=== PATIENT | female | born 1985 | race Caucasian/White ===

== ENCOUNTER 2016-07-12 09:00 | Inpatient (IN) | payer MEDICAID ==
[~2016-07-12] VITALS: Ht 157.5 cm; Wt 85.0 kg
[~2016-07-12 09:00] MED LIST: PREN1TAB49 PO
[2016-07-12 09:54] VITALS: Ht 157.5 cm; Wt 85.0 kg
[2016-07-12 09:57] VITALS: BP 108/59; PULSE 96; RESP 16
[2016-07-12] MEDS: LACTATED RINGER'S 1,000 ML IV SCH ×2 (10:48→18:59)
[2016-07-12] MEDS ORDERED: IBUPROFEN 600 MG TAB PO PRN (11:00)
[2016-07-12] MEDS ORDERED: CARBOPROST 250 MCG INJ IM PRN (11:00)
[2016-07-12] MEDS ORDERED: OXYTOCIN 30 UNITS/LR 500 ML IV SCH ×2 (11:00)
[2016-07-12] MEDS ORDERED: OXYTOCIN 30 UNITS/LR 500 ML IV PRN (11:00)
[2016-07-12] MEDS ORDERED: MISOPROSTOL 200 MCG TAB PR PRN (11:00)
[2016-07-12] MEDS ORDERED: BUTORPHANOL 2 MG INJ IV PRN (11:00)
[2016-07-12] MEDS ORDERED: METHYLERGONOVINE 0.2 MG INJ IM PRN (11:00)
[2016-07-12] MEDS ORDERED: LIDOCAINE 1% (MPF) 30 ML INJ INJ PRN (11:00)
[2016-07-12] MEDS ORDERED: ACETAMINOPHEN/CODEINE #3 TAB PO PRN (11:00)
[2016-07-12] MEDS ORDERED: DINOPROSTONE 10 MG VAG SUPP VAG ONE (11:30)
[2016-07-12 11:32] LABS: ADD SCAN DIFF NO
[2016-07-12 11:38] LABS: BASOPHILS % 0.1 % (0.0-2.0); EOSINOPHILS % 0.4 % (0.0-7.0); HEMATOCRIT 34.7 % (37.0-47.0); LYMPHOCYTES # 2.2 10^3/ul (0.8-2.9); LYMPHOCYTES % 31.4 % (15.0-51.0); MEAN CORPUSCULAR HEMOGLOBIN 30.3 pg (29.0-33.0); MEAN CORPUSCULAR HGB CONC 34.6 g/dl (32.0-37.0); MEAN CORPUSCULAR VOLUME 87.6 fl (82.0-101.0); MEAN PLATELET VOLUME 11.1 fl (7.4-10.4); MONOCYTE # 0.4 10^3/ul (0.3-0.9); MONOCYTES % 5.1 % (0.0-11.0); NEUTROPHIL # 4.4 10^3/ul (1.6-7.5); NEUTROPHILS % 62.7 % (39.0-77.0); PLATELET COUNT 265 10^3/UL (140-415); RED BLOOD COUNT 3.96 10^6/ul (4.20-5.40); RED CELL DISTRIBUTION WIDTH 14.2 % (11.5-14.5); WHITE BLOOD COUNT 7.1 10^3/ul (4.8-10.8)
[2016-07-12 11:58] LABS: INR 0.95; PROTIME 12.7 Sec (12.2-14.2)
[2016-07-12 11:59] LABS: PARTIAL THROMBOPLASTIN TIME 30.7 Sec (25.0-35.0)
[2016-07-12] MEDS ORDERED: LACTATED RINGER'S 1,000 ML IV PRN (12:00)
[2016-07-12] MEDS ORDERED: MINERAL OIL LIGHT 10 ML VIAL TOP PRN (16:30)
--- NOTE | 2016-07-12 17:53 | HP ---
Date/Time of Note Date/Time of Note DATE: 07/12/16 TIME: 17:50 OB - History Hx of Present Free Text/Dictation admitted for elective induction at 39+ weeks Last Menstrual Period: Oct 08, 2015 Estimated Due Date: July 14, 2016 : 3 Para: 2 Obstetrical Complications: None Medical Complications: None Past Family/Social History * Past Medical, Surgical, Family and Obstetric Histories reviewed from chart. Blood Type: O+ Rubella: immune RPR/VDRL: Negative GBS Status: Negative HBsAG: Negative OB Admission Exam Vital Signs Vital Signs Vital Signs Date Time Temp Pulse Resp B/P Pulse Ox O2 Delivery O2 Flow Rate FiO2 07/12/16 09:57 98.4 96 16 108/59 Physical Exam HEENT: WNL Heart: Rhythm Normal Lungs: Clear, Equal Abdomen: WNL Extremities: Normal Reflexes: Normal Cervical Dilatation: 1cm Effacement: 25% Station: -3 Heart Rate: 130's Accelerations: Accelerations Present Decelerations: No Decelerations Varibility: Marked Contractions on Admission: None Last 72 hours Lab Results CBC & BMP 07/12/16 10:43 OB Assessment/Plan Reason for admission: induction of labor Other Assessment: elective inductiob of the labor at 39 + weeks Induction Method: per Misoprostol Protocol JANETT ARGUELLO MD July 12, 2016 17:52
[2016-07-12] MEDS ORDERED: FENTAnyl 2MCG/ML-ROPIV 0.2% 100 ML ONE ×2 (23:48→23:57)
[2016-07-13] MEDS: LACTATED RINGER'S 1,000 ML IV SCH (00:32)
[2016-07-13] MEDS ORDERED: DEXTROSE 5%-LR 1,000 ML IV SCH (01:35)
[2016-07-13] MEDS: LACTATED RINGER'S 1,000 ML IV* SCH ×3 (01:35→12:36)
--- NOTE | 2016-07-13 01:35 | LDN ---
Date/Time of Note Date/Time of Note DATE: 07/13/16 TIME: 01:31 Delivery Summary 31 y/o with SIUP at 39 6/7 wks delivered a female over intact perineum Weight: 8 lbs Time of delivery: 01:16 Placenta Delivered: Spontaneously Meconium: none Episiotomy: No Anesthesia type: Epidural Estimated blood loss: 200 Sponge & Needle done & correct: Yes All needle counts correct: Yes Any foreign bodies felt in the: No Problems: Infant Delivery Information Sex Sex: female Apgars 1 Minute: 9 5 Minute: 9 10 Minute: 10 Suctioning Nose & mouth suctioned at ryne: Yes Umbilical Cord Umbilical cord with: 3 Vessels Cord presentations: no nuchal cord Cord Blood was obtained: Yes IRENE RUDOLPH July 13, 2016 01:35
[2016-07-13] MEDS ORDERED: ZOLPIDEM 5 MG TAB PO PRN (02:00)
[2016-07-13] MEDS ORDERED: LANOLIN 7 GM TUBE TOP PRN (02:00)
[2016-07-13] MEDS ORDERED: ONDANSETRON 4 MG INJ IV PRN (02:00)
[2016-07-13] MEDS ORDERED: METHYLERGONOVINE 0.2 MG INJ IM PRN (02:00)
[2016-07-13] MEDS ORDERED: MISOPROSTOL 200 MCG TAB PR PRN (02:00)
[2016-07-13] MEDS ORDERED: BENZOCAINE 20% 56 ML SPRAY TOP PRN (02:00)
[2016-07-13] MEDS ORDERED: CARBOPROST 250 MCG INJ IM PRN (02:00)
[2016-07-13] MEDS ORDERED: ACETAMINOPHEN 325 MG TAB PO PRN (02:00)
[2016-07-13] MEDS ORDERED: DIPHENHYDRAMINE 50 MG INJ IV PRN (02:00)
[2016-07-13] MEDS ORDERED: WITCH HAZEL/GLYCERIN PAD PR PRN (02:00)
[2016-07-13] MEDS ORDERED: OXYCODONE/ASPIRIN (4.88/325) TAB PO PRN (02:00)
[2016-07-13] MEDS ORDERED: OXYTOCIN 30 UNITS/LR 500 ML IV PRN (02:00)
[2016-07-13] MEDS ORDERED: DIBUCAINE 1% 30 GM OINT PR PRN (02:00)
[2016-07-13] MEDS ORDERED: SENNA/DOCUSATE NA (8.6MG/50MG) TAB PO PRN (02:00)
[2016-07-13] MEDS ORDERED: FENTAnyl 2MCG/ML-ROPIV 0.2% 100 ML BAG EPI SCH (02:30)
[2016-07-13] MEDS ORDERED: NALOXONE (0.4 MG/ML) INJ IV PRN (02:30)
--- NOTE | 2016-07-13 02:59 | DELSUM ---
Delivery Summary A-C Datetime Report Generated by CPN: 07/13/2016 02:58 DELIVERY PERSONNEL Manager Internet: Laura Luna MATERNAL INFORMATION Delivery Anesthesia: Epidural Medications in Delivery: LR WITH 30 UNITS OF PITOCIN Estimated Blood Loss (ml): 200 Placenta Cultured: No Maternal Complications: None LABOR SUMMARY EDC: 07/14/2016 00:00 No. Babies in Womb: 1 Attempted: No Labor Anesthesia: Epidural LABOR INFORMATION Reason for Induction: Other Reason for Induction- Other: 39.5 IUP Onset of Labor: 07/13/2016 19:00 Complete Dilatation: 07/13/2016 00:50 Cervical Ripening Agents: Cervidil Oxytocin: N/A Group B Beta Strep: Negative Antibiotics # of Doses: X0 Steroids Given: None Reason Steroids Not Administered: Not Applicable MEMBRANES Membranes Rupture Method: Spontaneous Rupture of Membranes: 07/12/2016 23:50 Length of Rupture (hr): 1.43 Amniotic Fluid Color: Clear Amniotic Fluid Amount: Small Amniotic Fluid Odor: None STAGES OF LABOR Stage 1 hr: -18 Stage 1 min: -10 Stage 2 hr: 0 Stage 2 min: 26 Stage 3 hr: 0 Stage 3 min: 4 Total Time in Labor hr: -17 Total Time in Labor min: -40 VAGINAL DELIVERY Episiotomy: None Laceration Extension: N/A Laceration Type: None Initial Vag Sponge Count: 20 Final Vag Sponge Count: 20 Initial Vag Sharps Count: 1 Final Vag Sharps Count: 1 Sponge Count Correct: Yes Sharps Count Correct: Yes BABY A INFORMATION Infant Delivery Date/Time: 07/13/2016 01:16 Method of Delivery: Vaginal Born in Route : No : N/A Forceps: N/A Vacuum Extraction: N/A Shoulder Dystocia : No SHOULDER DYSTOCIA BABY A Delivery Date/Time: 07/13/2016 01:16 PRESENTATION/POSITION BABY A Presentation: Cephalic Cephalic Presentation: Vertex Vertex Position: Left Occipital Anterior Breech Presentation: N/A PLACENTA INFORMATION BABY A Placenta Delivery Time : 07/13/2016 01:20 Placenta Method of Delivery: Spontaneous Placenta Status: Delivered SCORES BABY A Heart Rate 1 min: >100 bpm Resp Effort 1 min: Good Cry Reflex Irritability 1 min: Cough/Sneeze/Pulls Away Muscle Tone 1 min: Active Motion Color 1 min: Body Falconer, Extremit Blue Resuscitation Effort 1 min: Tactile Stimulation SCORE 1 MIN: 9 Heart Rate 5 min: >100 bpm Resp Effort 5 min: Good Cry Reflex Irritability 5 min: Cough/Sneeze/Pulls Away Muscle Tone 5 min: Active Motion Color 5 min: Body Falconer, Extremit Blue Resuscitation Effort 5 min: Tactile Stimulation SCORE 5 MIN: 9 INFANT INFORMATION BABY A Gestational Age at Delivery: 39.6 Gestational Status: Full Term- 39- 40.6 Weeks Outcome : Liveborn Condition : Stable Infant Sex: Female IDENTIFICATION/MEDS BABY A ID Band Number: [id number] ID Band Location: Right Leg; Left Arm Sensor Applied: Yes Sensor Number: [id number] Sensor Location : Cord Clamp Vitamin K Given : Not Given Erythromycin Given: Not Given WEIGHT/LENGTH BABY A Infant Birthweight (gm): 3615 Weight (lb): 8 Weight (oz): 0 Length (in): 20.00 Infant Length (cm): 50.80 CORD INFORMATION BABY A No. Cord Vessels: 3 Nuchal Cord : N/A Cord Blood Taken: Yes Infant Suction: Mouth; Nose ASSESSMENT BABY A Complications: Multiple Late Decels; Multiple Variable Decels Physical Findings at Delivery: Molding of the Head; Within Normal Limits Infant Respirations: Appears Normal Web Application Developer/ALS Called : No Infant Care By: Zay TIDWELL Transferred To: Remains with Mother
[2016-07-13 03:10] VITALS: BP 104/51; PULSE 104; RESP 18
[2016-07-13 04:45] VITALS: BP 104/54; PULSE 110
[2016-07-13] MEDS: IBUPROFEN 600 MG TAB PO SCH ×3 (05:59→18:18)
[2016-07-13 07:40] VITALS: BP 106/62; PULSE 92; RESP 18
[2016-07-13 15:45] VITALS: BP 128/61; PULSE 93; RESP 16
[2016-07-13 19:49] VITALS: BP 105/59; PULSE 93; RESP 20
[2016-07-14] VITALS (24 sets, daily range): BP systolic 99–119; BP diastolic 58–83; PULSE 64–96; RESP 16–20
[2016-07-14] MEDS: IBUPROFEN 600 MG TAB PO SCH ×4 (00:15→18:00)
[2016-07-14] MEDS: LACTATED RINGER'S 1,000 ML IV* SCH ×3 (00:47→17:35)
[2016-07-14] MEDS ORDERED: ROCURONIUM 50 MG INJ ONE (07:00)
[2016-07-14 08:07] LABS: ADD SCAN DIFF NO
[2016-07-14 08:14] LABS: BASOPHILS % 0.2 % (0.0-2.0); EOSINOPHILS # 0.2 10^3/ul (0.0-0.5); EOSINOPHILS % 1.9 % (0.0-7.0); HEMATOCRIT 32.7 % (37.0-47.0); HEMOGLOBIN 11.1 g/dl (12.0-16.0); LYMPHOCYTES # 3.2 10^3/ul (0.8-2.9); LYMPHOCYTES % 38.1 % (15.0-51.0); MEAN CORPUSCULAR HEMOGLOBIN 29.8 pg (29.0-33.0); MEAN CORPUSCULAR HGB CONC 33.9 g/dl (32.0-37.0); MEAN CORPUSCULAR VOLUME 87.7 fl (82.0-101.0); MEAN PLATELET VOLUME 10.9 fl (7.4-10.4); MONOCYTE # 0.5 10^3/ul (0.3-0.9); MONOCYTES % 5.8 % (0.0-11.0); NEUTROPHIL # 4.4 10^3/ul (1.6-7.5); NEUTROPHILS % 53.5 % (39.0-77.0); PLATELET COUNT 248 10^3/UL (140-415); RED BLOOD COUNT 3.73 10^6/ul (4.20-5.40); RED CELL DISTRIBUTION WIDTH 14.1 % (11.5-14.5); WHITE BLOOD COUNT 8.3 10^3/ul (4.8-10.8)
[2016-07-14] MEDS: LACTATED RINGER'S 1,000 ML IV SCH ×3 (10:46→19:49)
--- NOTE | 2016-07-14 17:32 | PN ---
Date/Time of Note Date/Time of Note DATE: 07/14/16 TIME: 17:31 Assessment/Plan VTE Prophylaxis VTE Prophylaxis Intervention: ambulation Lines/Catheters IV [facility] Peripheral IV Assessment/Plan Assessment/Plan S/P vaginal delivery desires sterilization will proceed with PP BTL Subjective 24 Hr Interval Summary Free Text/Dictation desires sterilization Constitutional: improved, no complaints Eyes: no complaints ENT: no complaints Respiratory: no complaints Cardiovascular: no complaints Gastrointestinal: no complaints Genitourinary: no complaints Musculoskeletal: no complaints Skin: no complaints Neurologic: no complaints Endocrine: no complaints Lymphatic: no complaints Psychological: nl mood/affect, no complaints Immunologic: no complaints Exam/Review of Systems Vital Signs Vitals Vital Signs Date Time Temp Pulse Resp B/P Pulse Ox O2 Delivery O2 Flow Rate FiO2 07/14/16 15:55 98.3 72 18 101/70 Room Air Intake and Output 07/13/16 07/13/16 07/14/16 14:59 22:59 06:59 Intake Total 825 ml Output Total 750 ml Balance 75 ml Exam Constitutional: alert, oriented, well developed Psych: nl mood/affect, no complaints Head: atraumatic, normocephalic Eyes: EOMI, PERRL, nl conjunctiva, nl lids, nl sclera ENMT: nl external ears & nose, nl lips & teeth, nl nasal mucosa & septum Neck: non-tender, supple Respiratory: clear to auscultation, normal air movement Cardiovascular: nl pulses, regular rate and rhythm Gastrointestinal: nl liver, spleen, non-tender, soft Musculoskeletal: nl extremities to inspection, nl gait and stance Extremities: normal pulses Neurological: CAFE WORKER II-XII intact, nl mental status, nl speech, nl strength Skin: nl turgor, No rash or lesions Lymph: nl lymph nodes Results Result Diagram: 07/14/16 0750 Results 24 hrs Laboratory Tests Test 07/14/16 07:50 White Blood Count 8.3 Red Blood Count 3.73 L Hemoglobin 11.1 L Hematocrit 32.7 L Mean Corpuscular Volume 87.7 Mean Corpuscular Hemoglobin 29.8 Mean Corpuscular Hemoglobin Concent 33.9 Red Cell Distribution Width 14.1 Platelet Count 248 Mean Platelet Volume 10.9 H Neutrophils % 53.5 Lymphocytes % 38.1 Monocytes % 5.8 Eosinophils % 1.9 Basophils % 0.2 Nucleated Red Blood Cells % 0.0 Neutrophils # 4.4 Lymphocytes # 3.2 H Monocytes # 0.5 Eosinophils # 0.2 Basophils # 0.0 Nucleated Red Blood Cells # 0.0 Medications Medications Current Medications Acetaminophen/ Codeine Phosphate 2 tab 2 tab ONCE PRN PO Moderate to Severe Pain (4-10); Start 07/12/16 at 11:00 Lactated Ringer's (Lr) 1,000 ml @ 125 mls/hr Q8H IV* Last administered on 07/13 06:00; Admin Dose 125 MLS/HR; Start 07/13/16 at 01:35 Ibuprofen (Motrin) 600 mg Q6 PO Last administered on 07/14/16 05:34; Admin Dose 600 MG; Start 07/13/16 at 06:00 Acetaminophen (Tylenol Tab) 650 mg Q4H PRN PO PAIN LEVEL 1-5; Start 07/13/16 at 02:00 Oxycodone/Aspirin (Percodan) 1 tab Q3H PRN PO PAIN LEVEL 1-5; Start 07/13/16 at 02:00 Ondansetron HCl (Zofran Inj) 4 mg Q6H PRN IV NAUSEA AND/OR VOMITING; Start at 02:00 Diphenhydramine HCl (Benadryl) 25 mg Q6H PRN IV PRURITUS; Start 07/13/16 at 02: 00 Zolpidem Tartrate (Ambien) 5 mg QHS PRN PO INSOMNIA; Start 07/13/16 at 02:00 Senna/Docusate Sodium (Senokot-S) 1 tab BID PRN PO CONSTIPATION Last administered on 07/13/16 10:15; Admin Dose 1 TAB; Start 07/13/16 at 02:00 Measles/Mumps/ Rubella Vaccine Live (Mmr Ii Vaccine) 0.5 ml ONCE ONCE SC* ; Start 07/15/16 at 09:00; Stop 07/15/16 at 09:01 Diphtheria/ Tetanus/Acell Pertussis 0.5 ml 0.5 ml ONCE ONCE IM* ; Start at 09:00; Stop 07/15/16 at 09:01 Oxytocin/Lactated Ringer's 500 ml @ 0 mls/hr ONCE PRN IV For Hemorrhage Management; Start 07/13/16 at 02:00 Methylergonovine Maleate (Methergine) 0.2 mg ONCE PRN IM VAGINAL BLEEDING; Start 07/13/16 at 02:00 Carboprost Tromethamine (Hemabate) 250 mcg ONCE PRN IM VAGINAL BLEEDING; Start 07/13/16 at 02:00 Misoprostol (Cytotec) 1,000 mcg ONCE PRN MN VAGINAL BLEEDING; Start 07/13/16 at 02:00 Naloxone HCl 0.2 mg 0.2 mg Q2M PRN IV FOR RESP RATE 8 OR LESS; Start 07/13/16 at 02:30 Lactated Ringer's (Lr) 1,000 ml @ 125 mls/hr Q8H IV Last administered on t 10:46; Admin Dose 125 MLS/HR; Start 07/14/16 at 09:30 JANETT ARGUELLO MD July 14, 2016 17:32
[2016-07-14] MEDS ORDERED: PROPOFOL 20 ML ONE (18:45)
[2016-07-14] MEDS ORDERED: MIDAZOLAM 1 MG/ML 2 ML INJ ONE (18:45)
[2016-07-14] MEDS ORDERED: METOCLOPRAMIDE 10 MG INJ ONE (18:45)
[2016-07-14] MEDS ORDERED: BUPIVACAINE 0.25% (MPF) 30 ML INJ ONE (19:02)
[2016-07-14] MEDS ORDERED: DEXAMETHASONE 4 MG/ML 1 ML INJ ONE (19:02)
[2016-07-14] MEDS ORDERED: CEFAZOLIN 1 GM INJ ONE (19:09)
[2016-07-14] MEDS ORDERED: ROPIVACAINE 0.5 % 30 ML VIAL ONE (19:16)
[2016-07-14] MEDS ORDERED: GLYCOPYRROLATE 0.4 MG INJ ONE (19:17)
[2016-07-14] MEDS ORDERED: NEOSTIGMINE 3 MG/3 ML SYRINGE ONE (19:17)
[2016-07-14] MEDS ORDERED: KETOROLAC 30 MG INJ ONE ×2 (19:17→20:25)
[2016-07-14] MEDS ORDERED: KETOROLAC 60 MG INJ IM STA (19:49)
--- NOTE | 2016-07-14 19:53 | DS ---
Date/Time of Note Date/Time of Note home next day DATE: 07/14/16 TIME: 19:51 Obstetrical Discharge Record Final Diagnosis Final Diagnosis: Term delivered Other Final Diagnosis S/P vaginal delivery and BTL Vaginal Delivery Obstetrical Delivery: Spontaneous, Bilateral Tubal Ligation Complications Induction: Yes Condition on Discharge Physical Assessment Last Vitals: see nurses notes Voiding: Yes Bowel Movement: Yes Breast: Soft, non-tender, Filling Fundus: Firm Abdomen and Incision: soft BS + incision: covered Episiotomy: NA Calf Tenderness: No Patient Condition: Good JANETT ARGUELLO MD July 14, 2016 19:53
--- NOTE | 2016-07-14 19:54 | PD.PPDC ---
AUTOMATIC ENGRAVER Discharge Instruction Provider Information Physician Information 31 y/o female had BTL after Diagnosis Final Diagnosis: S/P vaginal delivery and BTL Condition Patient Condition: Good Diet Diet: Resume Regular Diet Activity/Restrictions Activity: Normal Activity May Shower Restrictions: No Lifting Nothing in the Vagina Return to Work or School: Aug 30, 2016 Wound/Drain Care Instructions Wound/Drain Care Instructions: Keep clean and dry Follow-up Follow-up with Physician: 4, Week/Weeks (in clinic ) Return to clinic for DINING SERVICES MANAGER Instructions: Fever greater than 101 Chills OB Instructions: Breast Tenderness Depression Surgical Instructions: Incisional Drainage Incisional Redness JANETT ARGUELLO MD July 14, 2016 19:54
[2016-07-14] MEDS ORDERED: IBUP-1542 PO (19:55)
[2016-07-14] MEDS ORDERED: BUTORPHANOL 2 MG INJ IM ONE (20:00)
[2016-07-14] MEDS ORDERED: ONDANSETRON 4 MG INJ IV STA (20:07)
--- NOTE | 2016-07-14 20:08 | OPR ---
Operative Report Planned Procedure Procedure date July 14, 2016 Procedure(s) bilateral tubal ligation Performed by: JANETT ARGUELLO MD Anesthesiologist: CARMELA MELCHOR MD Pre-procedure diagnosis multiparity desires sterilization S/P vaginal delivery Anesthesia Type: general Procedure Description The patient was placed on the OR table in supine position. Spinal anesthesia was placed. A Mosley catheter was then inserted into urinary bladder under aseptic condition. After induction of spinal anesthesia, with the patient in supine position, abdominal area was prepped and draped for usual tubal ligation procedure. Under satisfactory anesthesia, a small incision 2 to 3 cm in length was placed just below belly button, incision extended laterally to 1.5 cm lateral to the linea nigra on either side. Incision was carried down with sharp and blunt dissection until fascia was reached. Anterior recti muscle fascia was incised in the midportion. Incision extended laterally to the border of the skin incision. Peritoneum was visualized. Avoiding bowel or bladder, incision was made in peritoneum, which was extended laterally to the border of the skin incision. Two [place] retractors were placed inside the incision. Incision was brought up to the level of the left fallopian tube. Fallopian tube was raised in the mid portion. A clamp was placed below the fimbriated end, most of the fallopian tube from the mesosalpinx traversing the isthmus portion of the tube. Another clamp was placed just below the first and 0 Vicryl tie was used to tie the mesosalpinx and the stump of the fallopian tube on the proximal side. Another stitch of the same kind was used for adequate hemostasis. Hemostasis appeared to be secure on ligated sites of the fallopian tube. Tube was incised above the stitched area. Same procedure was done on the fallopian tube on opposite side. Hemostasis appeared to be secure on ligated sites of either fallopian tubes. Ovaries were within normal limits. Uterus appears to be size. Announcing needle, lap, sponge and instrument count to be correct, abdomen was closed in layers as follows: Peritoneum with running stitches of #1 Vicryl, fascia edges of #1 Vicryl, subcutaneous tissue with running stitches of #1 Vicryl, and skin was reapproximated using subcuticular stitches of 4-0 Monocryl on a PS2 needle and also Dermabond was placed on the incision. The patient tolerated the procedure very well and was transferred to postanesthesia recovery room in stable and good condition. ESTIMATED BLOOD LOSS: Less than 5 mL. Post-Procedure Post-procedure diagnosis S/P BTL Findings: NL R and L fallopian tubes Specimen removed: Yes Specimen description segments of R and L fallopian tubes Complications: None Pt Condition post procedure: stable Disposition: PACU Physician Certification I, the undersigned physician, hereby certify that I have discussed the procedure described in this consent form with this patient (or the patient's legal practice representative), including: * The risk and benefits of the procedure; * Any adverse reactions that may reasonably be expected to occur; * Any alternative efficacious methods of treatment which may be medically viable ; * The potential problems that may occur during recuperation; * Potential for blood transfusion and associated risks/benefits; and * Any research or economic interest I may have regarding this treatment. I further certify that the patient/legally responsible person was encouraged to ask question and that all questions were answered. JANETT ARGUELLO MD July 14, 2016 20:08
[2016-07-14] MEDS ORDERED: HYDROmorphONE (0.2 MG/ML) 10ML SYG IV PRN ×3 (20:30)
[2016-07-14] MEDS ORDERED: MEPERIDINE 25 MG INJ IV PRN (20:30)
[2016-07-14] MEDS ORDERED: METOCLOPRAMIDE 10 MG INJ IV PRN (20:30)
[2016-07-14] MEDS ORDERED: DIPHENHYDRAMINE 50 MG INJ IV PRN (20:30)
[2016-07-14] MEDS ORDERED: ONDANSETRON 4 MG INJ IV PRN (20:30)
[2016-07-15] VITALS: BP 108/65; PULSE 66; RESP 19
[2016-07-15] MEDS: IBUPROFEN 600 MG TAB PO SCH ×3 (00:27→12:23)
[2016-07-15] MEDS: CEPHALEXIN 500 MG CAP PO SCH ×3 (00:27→12:23)
[2016-07-15] MEDS: LACTATED RINGER'S 1,000 ML IV SCH ×3 (00:28→09:30)
[2016-07-15 04:00] VITALS: BP 98/60; PULSE 73; RESP 20
[2016-07-15 07:30] VITALS: BP 100/64; PULSE 74; RESP 18
[2016-07-15] MEDS ORDERED: MEASLES,MUMPS,RUBELLA VACCINE INJ SC* ONE (09:00)
[2016-07-15] MEDS ORDERED: DIPHTH/TET/ACEL PERTUSS (ADULT) 0.5 ML VIAL IM* ONE (09:00)
[2016-07-15 15:35] VITALS: BP 93/65; PULSE 72; RESP 18
== END 2016-07-15 15:55 | disposition home or self-care (01) | DRG 767 ==
LOC: L-D 09:32 → PP1 07-13 03:02
PROVIDERS: ADMIT Obstetrics & Gynecology; ATTEND Obstetrics & Gynecology
PROC: 10E0XZZ Delivery of Products of Conception, External Approach (ICD-10-PCS; principal; 2016-07-13)
PROC: 0UL70ZZ Occlusion of Bilateral Fallopian Tubes, Open Approach (ICD-10-PCS; 2016-07-14)
DX: O80 Encounter for full-term uncomplicated delivery (principal); Z30.2 Encounter for sterilization; Z3A.39 39 weeks gestation of pregnancy; Z37.0 Single live birth
CPT/HCPCS: 62319; 85025; 85610; 85730; 86592; 86900; 86901; 90715; J0690; J1100; J1885; J2175; J2250; J2405; J2590; J2710; J2765; J2795; J3010; J7120; J7121